=== PATIENT | female | born 1970 | race African-American/Black ===

== ENCOUNTER 2019-06-04 08:28 | Inpatient (IN) | payer BC, OTHER ==
[2019-05-27 10:00] LABS: HEMATOCRIT 40.4 % (37.0-47.0); HEMOGLOBIN 13.4 gm/dL (12.0-15.0); MCH 35.7 pg (26.0-34.0); MCHC 33.1 g/dL (28.0-37.0); MCV 107.7 fL (80.0-100.0); RBC 3.75 mil/uL (4.20-5.00); RDW 16.7 % (10.5-14.5); WBC 4.4 thou/uL (4.0-11.0)
[2019-05-27 10:00] LABS: URINE BILIRUBIN NEGATIVE (Negative); URINE BLOOD NEGATIVE (Negative); URINE CLARITY CLEAR; URINE COLOR YELLOW; URINE GLUCOSE-RANDOM* NEGATIVE (Negative); URINE KETONES TRACE (Negative); URINE LEUKOCYTES-REFLEX NEGATIVE (Negative); URINE NITRITE-REFLEX NEGATIVE (Negative); URINE PROTEIN (DIPSTICK) NEGATIVE (Negative); URINE SPECIFIC GRAVITY >= 1.030 (1.005-1.035); URINE UROBILINOGEN 0.2 E.U./dl (0.2-1.0)
[2019-05-27 10:09] LABS: ALBUMIN 3.7 g/dL (3.4-5.0); CALCIUM 9.9 mg/dL (8.5-10.1); CREATININE 0.8 mg/dL (0.6-1.0); POTASSIUM 3.7 mmol/L (3.5-5.1)
[2019-05-27 10:14] LABS: PROTIME 10.2 Seconds (9.3-11.4)
--- NOTE | 2019-05-27 12:43 | EKG ---
[facility] [place] [address] ELECTROCARDIOGRAM REPORT Name: BEA ANDRE Room #: PRE [facility] M..#: [id number] Admission: Attend Phys: Vernon Campoverde MD Discharge: Date of : 72 Report #: [id number] THIS REPORT FOR: cc: Jer Farr MD, Sequita MD Lammoglia,Zeb Venegas MD ~ THIS REPORT FOR: //name// [facility] Test Date: 2019-05-27 Test Time: 09:45:08 Pat Name: BEA ANDRE Department: Room: Gender: F Crown Presser: NATE CURTIS : 1970 Requested By: Vernon Campoverde Order Number: [id number] MD: Zeb Hahn Measurements Intervals [place] Rate: 97 P: 34 FL: 140 QRS: 1 QRSD: 67 T: 103 QT: 420 QTc: 534 Interpretive Statements Sinus rhythm Borderline LVH with secondary repol abnrm Nonspecific ST-T wave changes No previous ECG available for comparison Electronically Signed On 05-27-2019 12:15:55 [employer] by Zeb Hahn [email or web address] <ELECTRONICALLY SIGNED> By: Zeb Hahn MD 05/27/19 1215 0945 Zeb Hahn MD /EPI
[~2019-06-04] VITALS: Ht 185.4 cm; Wt 129.7 kg
[~2019-06-04 08:28] MED LIST: ALEVE220 M1 PO; AMITRIPTYLINE H25 M2 OR; BACLOFEN 10MG T10 MG PO; BUSPAR30 MG PO; CLOTRIMAZOLE-BE30 M1; COUMADIN 4 MG TA4 M1 PO; COUMADIN6 MG PO; CYMBALTA60 MG PO; ENDOCET 10-3251 EACH PO; FOLIC ACID1 MG PO; HYDROCODON-ACE1 EACH PO; LIDODERM1 EACH TOP; MELATONIN10 M3 PO; METOPROLOL SUC100 MG PO; MIRALAX17 GM PO; MOBIC7.5 M1 PO; MOBIC7.5 MG PO; NEURONTIN100 MG PO; NEURONTIN600 MG PO; NORCO 10-325 T1 EACH PO; NORVASC 2.5 MG2.5 M1 PO; ORTHO TRI-CYCL1 EAC1 PO; PERCOCET 10-321 EACH PO; ROBAXIN 750 MG750 MG PO; SAVELLA50 MG PO; SENNA-DOCUSATE1 EAC1 PO; TRAZODONE HCL50 MG PO; TUMS PO; TYLENOL325 MG PO; VALIUM5 MG PO; VICODIN 5-5001 EACH PO; VISTARIL 25 MG25 M1 PO; VITAMIN B-12100 MC1 PO; VITAMIN D 5050000 I1; ZANAFLEX4 M1 PO; ZOLOFT100 MG PO; [UNRECOGNIZED DRUG - OTHER]
[2019-06-04 09:48] VITALS: BP 155/88
--- NOTE | 2019-06-04 16:43 | O ---
[facility] [place] [address] [place] [address] OPERATIVE REPORT Name: BEA ANDRE Room #: 150-4 [facility]..#: [id number] Admission: 06/04/19 Attend Phys: Vernon Campoverde MD Discharge: Date of : 72 Report #: [id number] THIS REPORT FOR: cc: Jer Farr MD,Jer Campoverde,Vernon Venegas MD ~ CC: Vernon Farr DATE OF SERVICE: 06/04/2019 PREOPERATIVE DIAGNOSIS: End-stage degenerative arthritis, bilateral knees. POSTOPERATIVE DIAGNOSIS: End-stage degenerative arthritis, bilateral knees. PROCEDURE: Bilateral total knee replacement. SURGEON: Vernon Campoverde MD INDICATIONS: This heavy, but otherwise well appearing 49-year-old female has problems with severe progressive degenerative arthritis in multiple joints. She already underwent bilateral total hip replacements in the past and is functioning well there. Now, she has rather severe bilateral knee pain with mild valgus alignment on the right side and moderate to moderately severe valgus alignment on the left. She has limited range of motion with significant joint crepitus and significant intermittent swelling and pain. Given this, she has elected to go ahead with total knee replacement. We have discussed doing 1 knee at a time versus a bilateral procedure under the same anesthetic. I am concerned with her size and difficulty with postoperative rehabilitation and have suggested 1 knee at a time. She is rather adamant, however, that she would like to proceed with bilateral knee replacement, understanding the potential risks as well as benefits. We have decided that we would go ahead with left total knee replacement and pending our progress on that side might proceed with the right side under the same anesthetic if her procedure is going well without any problems or complications. The patient and her family understand this well and wish to proceed. DESCRIPTION OF PROCEDURE: The patient was taken to the operating room where she was placed under general anesthesia. Prophylactic intravenous antibiotics were administered. The left knee and leg were meticulously prepped and draped and a thigh tourniquet inflated to 350 mmHg. An anterior longitudinal skin incision was made and carried through the medial retinaculum. The patella was reflected laterally. Marked degenerative change in all 3 compartments and marked hypertrophic spurring throughout the knee was noted. The Schulz and NephBeisen knee system was utilized. Intramedullary guides were used on both the femur and the tibia. The femur was cut in 5 degrees of valgus and the tibia cut perpendicular [address] [address] OPERATIVE REPORT Name: BEA ANDRE Room #: 150-4 [facility]#: [id number] Admission: 06/04/19 Attend Phys: Vernon Campoverde MD Discharge: Date of : 72 Report #: [id number] to long axis of the bone. Sufficient bone was removed to correct the valgus malalignment and also to correct the mild 5-10 degree flexion contracture. The femur was best suited for a size 7 component. The tibia was best suited for a size 6 component. A trial reduction was performed and a size 10 mm polyethylene insert fit nicely resulting in satisfactory alignment and range of motion and stability. The patellar surface was resected and a 38 mm patellar button fit nicely with appropriate anchor holes. The trial components were removed. The surfaces were thoroughly irrigated and dried. The intramedullary canal was blocked with bone block on both the femoral and tibial sides. Methyl methacrylate cement was mixed and injected into the porous surface of the proximal tibia. The permanent components were brought up onto the field. A Schulz and Nephew size 6 Joann II tibial base plate was applied in appropriate position. It was impacted into place and seated nicely. All excess cement was removed from around its margin. A 10 mm Legion cruciate retaining polyethylene insert was then applied. It was snapped into place. It seated nicely and appeared to be secure. A size 7 left Legion femoral component was then applied using a small amount of cement at the distal femoral condyle where the bone was mildly soft. This component also seated nicely and appeared to be secure. It was impacted into place. A size 38 patellar button was cemented into place using appropriate anchor holes. Excess cement was removed from around its margin. The patella was held in place with a patellar clamp until the cement firmly hardened. Once the components were stable, range of motion, alignment, stability was once again assessed and felt to be satisfactory. The knee demonstrates full knee extension and flexion beyond 135 degrees with marked improvement in the preoperative valgus malalignment. The patella seemed to track nicely and appears to be stable. The joint seemed to be adequately aligned and appears to be generally stable. At this point, a single Hemovac was left in the wound exiting through a separate stab incision. The fascia was then closed with multiple #1 Vicryl sutures. The tourniquet was deflated after a total tourniquet time of 59 minutes. Good hemostasis was confirmed. The subcutaneous tissues were closed with 0 Monocryl. The skin was closed with skin juan. A sterile dressing was applied. At this point, the general progress was discussed, this initial surgery on the left side well despite her size and rather marked degenerative change. She seems to have no problems with her anesthetic and was doing quite nicely. Given this, I felt it was reasonable to go ahead with her request for right total knee replacement under the same anesthetic. At this point, the left knee was well protected in a sterile dressing and that extremity was covered. Attention was then directed to the right side. The right knee also demonstrates slight valgus malalignment and mild flexion contracture. The knee was carefully prepped and draped. A thigh tourniquet was [facility] [address] [place] [address] OPERATIVE REPORT Name: THAIBEA Lara Room #: 150-4 [facility]#: [id number] Admission: 06/04/19 Attend Phys: Vernon Campoverde MD Discharge: Date of : 72 Report #: [id number] applied and inflated to 350 mmHg. An anterior longitudinal skin incision was made and carried along the medial retinaculum. The patella was reflected laterally. Marked degenerative change in all 3 compartments was noted. Once again, the Schulz and Nephew knee system was utilized. Intramedullary guides were used on both the femur and the tibia. The femur was cut in 5 degrees of valgus and the tibia cut perpendicular to the long axis of the bone. There was less significant bony spurring and less significant degenerative change in the right knee when compared to the left. The right knee seemed best suited for a size 6 right Legion femoral component and a size 5 Joann II tibial component. A trial reduction was performed and a 9 mm tibial insert fit nicely. This resulted in full knee extension and good flexion beyond 135 degrees. The patellar surface was resected and a 35 mm patellar button seemed to fit nicely. The trial components were removed. The bony surfaces were thoroughly irrigated and dried. The intramedullary canal was blocked with a bone block on both the femoral and tibial sides. Methyl methacrylate cement was mixed and injected into the porous surface of the tibia. The permanent components were brought up on to the field. A Schulz and Nephew size 5 right Joann II tibial baseplate was inserted in appropriate alignment. It seated nicely and appeared to be secure. A 9 mm Legion cruciate retaining polyethylene liner was snapped into place. It also seated nicely and appeared to be secure. A 45 mm patellar button was cemented in position using appropriate anchor holes and secured with a patellar clamp until the cement had hardened. All excess cement was removed from around its margin. Once the components were solid and the cement was firm, alignment, range of motion and stability were once again assessed and felt to be satisfactory. The patellar tracks nicely and appears to be stable. The knee demonstrates full knee extension and flexion beyond 135 degrees. At this point, a single Hemovac was left in the wound exiting through a separate stab incision. The fascia was closed with multiple #1 Vicryl sutures. The subcutaneous tissues were closed with 0 Monocryl. The skin was closed with skin juan. A sterile dressing was applied. At this point, the patient was awakened and returned to the recovery room in good condition. <ELECTRONICALLY SIGNED> By: Vernon Campoverde MD 06/04/19 1643 1402 1452 Vernon Campoverde MD /nt
[2019-06-04] MEDS ORDERED: XANAX 0.5 MG0.5 M1 PO (18:18)
[2019-06-04 20:10] VITALS: BP 120/80
--- NOTE | 2019-06-04 20:11 | NUR ---
PT CARE ASSUMED POST OP AT 1700. A&Ox4. PT HAD A BILATER KNEE WITH MINIMAL PAIN. HEMOVAC IN PLACE IN BOTH KNEES. SEE OUTPUT FOR DRAIN AMOUNT. REILLY DRESSING INTACT. ICE PACKS/ FABIÁN HOSES/ SCD'S IN PLACE. IV PATENT, WITH NO REDNESS OR EDEMA. FEMORAL BLOCKS ARE IN PLACE. PT HAS BEEN WEANED OFF OF 02 AND IS STABLE AT 100%. LUNGS ARE CLEAR. NO EDEMA ON EITHER LEGS. DIASTOLIC PRESSURE IS ELEVATED WITH RANGES FROM 89-96 AND HEART RATE ELEVATED AT 110. MD AWARE. PT HAS ANXIETY AND IS AWARE THAT RECOVERY WILL TAKE A WHILE. EXSTENSIVE TIME SPENT WITH PATIENT IN ROOM TRYING TO REORIENT AND ANC CALM HER DOWN. PT NEEDED TO USE THE BATHROOM, GAIT BELT APPLIED. PT WAS ABLE TO EASILY MANUEVER HERSELF TO THE EDGE OF THE BED WITH MY ASSISTANCE. LEGS WERE BOTH DANGLED. PT LEANED FORWARS AND ATTEMPTED TO STAND WITH THE WALKER AND HER LEGS "GAVE OUT". PT DID NOT FALL. WITH ASSISTANCE OF OTHER STAFF WE WERE ABLE TO MOVE HER BACK TO HER BED. PT WAS VERY WORRIED THAT SHE MADE A MISTAKE OF HAVING BOTH HER KNEES DONE AT THE SAME TIME BEING WORRIED THAT THEY WOULD NOT BE ABLE TO HOLD HER WEIGHT. I WAS INFORMED FROM PT SISTER THAT PT HAS BILATERAL NUMBNESS PREOP WHICH I WAS NOT AWARE OF OR GIVEN IN REPORT. PT RECEIVED PAIN MEDICATION AND AN AMBIEN TO CALM HER NERVES AND GET SOME REST. LIQUID DIET TILERATED WELL AND ADVANCED TO A REGULAR DIET. IV FLUIDS INFUSING. FALL PROTOCOLL IN PLACE. CALL LIGHT IN REACH. PT IS VERY ANXIOUS ABOUT PLAN OF CARE. PLAN OF CARE EXPLAINED TO PT AND SISTER IN THE ROOM. PT AWAITING PT THERAPY IN THE MORNING. WILL CONTINUE TO MONITOR. END OF SHIFT REPORT GIVEN TO NATE MALIN.
[2019-06-05 05:28] LABS: FOLIC ACID 21.2 ng/mL (8.6-58.9)
[2019-06-05 07:49] LABS: HEMOGLOBIN 10.2 gm/dL (12.0-15.0); MCH 35.8 pg (26.0-34.0); MCHC 34.1 g/dL (28.0-37.0); MCV 104.9 fL (80.0-100.0); RBC 2.86 mil/uL (4.20-5.00); RDW 16.2 % (10.5-14.5); WBC 6.3 thou/uL (4.0-11.0)
[2019-06-05 08:15] VITALS: BP 138/79
[2019-06-05 08:30] VITALS: BP 149/89
--- NOTE | 2019-06-05 08:56 | NUR ---
ASSUMED PT CARE AT 1900. UPON SHIFT CHANGE, PT VERY ANXIOUS AND TEARFUL. CONCERNED ABOUT PLAN OF CARE, SPECIFICALLY HOW SHE WAS GOING TO USE THE BATHROOM. REFUSED THE BEDPAN. EXTERNAL CATHETER APPLIED. HAD TO DO A FULL BED CHANGE ONCE WHEN CATHETER WASN'T APPLIED CORRECTLY, TEDS AND LIZA BANDAGES GOT WET, WERE CHANGED. DERSSING DRY AND INTACT. HEMOVAC OUTPUT BEGINNING TO SLOW DOWN. PAIN BEING MANAGED WITH PAIN MEDICATION. ANXIETY AND SLEEP AGENTS GIVEN, ALTHOUGH PT BARELY SLEPT TONIGHT. ANTIBIOTICS AND FLUIDS HUNG PER ORDER.
--- NOTE | 2019-06-05 16:55 | NUR ---
PT'S DRAIN TO [facility] THIS AFTERNOON. PT HAS SCD'S PICCO DRESSING AND FABIÁN HOSE ORDERED. PT GIVEN PRN PAIN MED SOON POSSIBLE TO MANAGE PAIN.HAS OXY, HYDRO AND MORPHINE IV PUSH. ALSO SCED MORPHINE BID. PT WORKING WITH THERAPY. HAS BROTHERS IN ROOM.
--- NOTE | 2019-06-05 16:56 | NUR ---
FAXED REFERRAL TO [facility] SPOKE WITH CAROLYN IN INTAKE SHE CAN ACCEPT. IF PT DISCHARGES OVER WEEKEND FAX DC ORDERS/SUMMARY TO [phone] AND CALL [phone] TO LET THEM KNOW PT DC'D.
[2019-06-05 17:25] VITALS: BP 149/89
--- NOTE | 2019-06-05 17:26 | NUR ---
Case opened to follow for hh referral at ne. The pt is s/p bilat knee replacements. She lives alone and has two steps to enter her house. She has a FWW and shower chair in place at home. She is agreeable to hh f/u and denies preference. Mi traffic and transport planner faxed referral to [facility] and they can accept her insurance plan. They will need to be notified at ne [phone] and orders faxed to [phone].
[2019-06-05 19:40] VITALS: BP 138/81
--- NOTE | 2019-06-06 03:22 | NUR ---
ASSSUMED CARE OF PT @1900 PT ASSESSED AT START OF SHIFT WITH C/O OF PAIN. MEDS GIVEN FOR MANAGEMENT SEE EMAR. EXTERNAL FEMALE CATH IN PLACE AND DRAINING. REILLY DRESSING ON BOTH KNEES AND ICE PACK PLACE FOR PAIN MANAGEMENT. IV INTACT IN RT WRIST AND SALINE LOCK. FALL PREC IN PLACE AND CALL LIGHT IN REACH WILL CONT TO MONITOR.
[2019-06-06 04:10] VITALS: BP 146/85
[2019-06-06 06:14] LABS: HEMATOCRIT 28.1 % (37.0-47.0); HEMOGLOBIN 9.7 gm/dL (12.0-15.0); MCH 35.8 pg (26.0-34.0); MCHC 34.4 g/dL (28.0-37.0); MCV 104.2 fL (80.0-100.0); RBC 2.7 mil/uL (4.20-5.00); RDW 15.9 % (10.5-14.5); WBC 6.8 thou/uL (4.0-11.0)
--- NOTE | 2019-06-06 07:29 | NUR ---
PT RESTING IN BED. ICE PACKS TO JOHAN KNEE'S. WILL CONTINUE TO MONITOR PRN PAIN MEDS. PT ALERT XS 4.
[2019-06-06 08:24] VITALS: BP 137/71
[2019-06-06 19:35] VITALS: BP 132/78
[2019-06-07 04:50] VITALS: BP 128/66
--- NOTE | 2019-06-07 05:47 | NUR ---
PT LYING IN BED. EXTERNAL CATHETER IN PLACE. PERCOCET AND LORTAB PROVIDING PAIN RELIEF. RESTING COMFORTABLY. NO NEEDS VOICED. CALL LIGHT WITHIN REACH. FREQUENT OBSERVATION.
[2019-06-07 06:08] LABS: HEMATOCRIT 29.1 % (37.0-47.0); HEMOGLOBIN 9.7 gm/dL (12.0-15.0); MCHC 33.4 g/dL (28.0-37.0); MCV 104.7 fL (80.0-100.0); RBC 2.78 mil/uL (4.20-5.00); RDW 16.1 % (10.5-14.5)
--- NOTE | 2019-06-07 09:32 | NUR ---
PT RESTING IN BED ATE BREAKFAST. TOOK AM MEDS INCLUDING SCED PAIN MED AND PRN PAIN MED. WASHED UP THIS AM. PT TO WORK WITH THERAPY TODAY.
[2019-06-07 16:43] VITALS: BP 131/67
[2019-06-07 20:03] VITALS: BP 132/61
[2019-06-08 06:09] VITALS: BP 118/74
--- NOTE | 2019-06-08 07:49 | NUR ---
PT LYING IN BED. EXTERNAL FEMALE CATHETER IN PLACE. PERCOCET AND LORTAB PROVIDING PAIN RELIEF. RESTING COMFORTABLY. NO NEEDS VOICED. CALL LIGHT WITHIN REACH. FREQUENT OBSERVATION.
--- NOTE | 2019-06-08 15:18 | NUR ---
PT RESIDES ALONE IN A HOUSE WITH STEPS. CARE TEAM ARE RECOMMENDING SHORT TERM POST ACUTE CARE STAY FOR PT. CM PROVIDED PT A LIST OF FACILITIES TO REVIEW. CM FOLLOWED UP WITH PT EARLY THIS AFTERNOON AND SHE INDICATED SHE WOULD HAVE SOME FACILITIES SELECTED TOMORROW AM. CM INDICATED THAT WE WOULD NEED AUTH AND THE SOONER WE GET OPTIONS THE BETTER PT INDICATED UNSERSTANDING.
--- NOTE | 2019-06-08 19:53 | NUR ---
Assumed care of pt at 0700. Pt a&ox4. Dressing on both knees c/d/i. Pt requests metamucil. Provider notified. New order noted. FABIÁN hose and SCDs in place. Pt up to the bedside commode 2 person assist, with gaitbelt and walker. Pain controlled with prn pain meds. Call light within reach. Fall precautiosn in place. Report given to sury SULLIVAN.
[2019-06-08 19:59] VITALS: BP 136/79
--- NOTE | 2019-06-08 20:00 | NUR ---
ASSESSMENT COMPLETED. PT CALM AND PLEASANT. QUIETLY WATCHING TV.FRESH ICEPAKS PROVIDED. SCDS AND REILLY PLUS TEDS IN PLACE. KNEES WEIGHT GUESSER TO THE TOUCH. PT RATES PAIN AT A 7/10, PAIN MEDS GIVEN. PT DENIES ANY N/V.PT REQUESTED SOME MEDS ALITTLE EARLY. PLAN FOR PAIN MGT AND SOME GOOD REST TONIGHT.
[2019-06-09 03:43] VITALS: BP 145/69
[2019-06-09 07:00] VITALS: BP 133/77
--- NOTE | 2019-06-09 12:04 | NUR ---
Assumed care of pt at 0700. Pt a&ox4. Flat effect. Dressing on bilateral knees c/d/i. Pt worked with physical therapy. Recommended skilled vs home discharge. Pain controlled with prn pain meds. FABIÁN hose and SCDs in place. Call light within reach. Fall precautions in place. Will continue to monitor.
--- NOTE | 2019-06-09 14:24 | NUR ---
FAXED REFERRAL TO [facility] SPOKE WITH LIZBETH IN ADM SHE RECEIVED REFERRAL AND WILL REVIEW IF SHE CAN ACCEPT SHE WILL SUBMIT FOR AUTH. FAXED REFERRAL TO [facility] SPOKE WITH DANIEL IN ADM SHE RECEIVED REFERRAL AND WILL NOT HAVE BED AVAILABLE TO END OF WEEK. DP TO FOLLOW.
--- NOTE | 2019-06-09 14:57 | NUR ---
I have reviewed and concur with student documentation.
--- NOTE | 2019-06-09 14:57 | NUR ---
PT WORKED WITH PT THIS AM AND INDICATED SHE WOULD STILL BENEFIT FROM POST ACUTE CARE STAY. CM FOLLOWED UP WITH PT AND SHE ASKED THAT REFERRAL BE SENT TO [facility]. [facility] CAN ACCEPT PT AND HAVE SUBMITTED FOR AUTH. CM TO FOLLOW INDICATED WITH DC PLANNING.
[2019-06-09 21:25] VITALS: BP 125/71
--- NOTE | 2019-06-10 05:03 | NUR ---
ASSESSED AT START OF SHIFT PT A&OX4. REILLY DRESSING INTACT IN BILATERAL KNEE. ICE PACK PLACED. PT UP WITH MAX ASSISTX2 TO BSC WITH GB AND WALKER. PAIN MEDS GIVEN FOR MANAGEMENT THIS SHIFT. IV INTACT AND SALINE LOCK. SCD'S IN PLACE AND FAMILY AT BEDSIDE WILL CONT WITH POC TILL EOS.
[2019-06-10 05:51] VITALS: BP 151/76
[2019-06-10 07:42] VITALS: BP 128/84
--- NOTE | 2019-06-10 10:57 | NUR ---
PT RESTING IN BED ALERT XS 4. PT GIVEN PRN PAIN MED. HAS DRESSING INTACT TO JOHAN KNEE'S. PT PLEASANT ANS COOPERATIVE WITH CARE. PT WORKING WITH THERAPY.
[2019-06-10 15:58] VITALS: BP 133/72
--- NOTE | 2019-06-10 16:40 | NUR ---
FAXED TODAY'S PT NOTES TO [facility] RECEIVED CONFIRMATION AND LEFT MSG WITH LIZBETH IN ADM TO SUBMIT THEM FOR AUTH.
[2019-06-10 19:57] VITALS: BP 127/77
[2019-06-10 20:04] VITALS: BP 133/56
--- NOTE | 2019-06-11 05:31 | NUR ---
ASSUMED PT CARE AT 1900. PT SEEMS ANXIOUS TONIGHT. REQUESTING ANXIETY AND SLEEP AGENTS. PM MEDS AND PRNS GIVEN. UP TO COMMODE, VERY ANXIOUS ABOUT PUTTING WEIGHT ON HER LEGS. CALLS APPROPRIATELY FOR PAIN MEDS. SLEEPING ON AND OFF ALL NIGHT, NO OTHER SIGNIFICANT CHANGES.
--- NOTE | 2019-06-11 07:36 | D ---
[facility] [place] [address] DISCHARGE SUMMARY Name: BEA ANDRE Room #: 444-P ADM IN M.R.#: [id number] Admission: 06/04/19 Attend Phys: Vernon Campoverde MD Discharge: Date of : 72 Report #: [id number] THIS REPORT FOR: cc: Jer Farr MD,Jer Campoverde,Vernon Venegas MD ~ THIS REPORT FOR: //name// CC: Vernon Farr DATE OF SERVICE: 06/10/2019 FINAL DIAGNOSIS: End-stage degenerative arthritis, bilateral knees. OPERATIONS AND PROCEDURES: Bilateral total knee arthroplasty. HISTORY OF PRESENT ILLNESS: This 49-year-old female is heavy and deconditioned. She has a number of general medical problems. She also has rather severe progressive degenerative arthritis. She has previous bilateral total hip replacement with good result. She now has rather severe end-stage degenerative arthritis involving both knees. She has elected to go ahead with total knee replacement and prefers a bilateral procedure. HOSPITAL COURSE: The patient was admitted and taken to the operating room on 06/04/2019. She underwent bilateral total knee replacement. She tolerated the procedure well, but did have significant problems with ongoing discomfort and weakness with very slow progress regarding physical therapy. She had bilateral femoral nerve blocks which were helpful with pain control, but caused significant weakness such as she was really unable to ambulate with full weight on either leg for the first 48 hours. Gradually, the weakness started to improve and she was able to begin some organized therapy, but with maximum assistance. She is able to ambulate only a few steps using a walker for balance. She can transfer to a chair or to the bedside commode, but is not yet fully independent or safe. She has stairs in her own home and we have tried to advance her activity on steps without much success as she is simply too weak and out of balance to manage this in a safe and functional manner. Given this, we have looked at other alternatives and I believe will be moving to an extended care facility for probably 7-10 days of organized therapy and strengthening before she will be ready to go home. DISCHARGE MEDICATIONS: Include amlodipine 2.5 mg daily, baclofen 10 mg twice daily, BuSpar 30 mg daily, vitamin B12 at 100 mcg daily, Cymbalta 60 mg daily, folic acid 1 mg daily, gabapentin 100 mg 2 tablets 3 times daily, methocarbamol 750 mg q.i.d. p.r.n. for muscle spasm, metoprolol 100 mg daily, Colace 1-2 tablets twice daily, Xanax 0.5 mg p.r.n. as a sleep aid, Xarelto [address] [address] DISCHARGE SUMMARY Name: BEA ANDRE Lara Room #: 444-P [facility] IN M.R.#: [id number] Admission: 06/04/19 Attend Phys: Vernon Campoverde MD Discharge: Date of : 72 Report #: [id number] Her pain medication includes oxycodone extended release 20 mg tablets twice daily and hydrocodone 10 mg q.6 hours p.r.n. for breakthrough pain. She will continue with an aggressive therapy program for range of motion and strengthening using a walker for balance and safety. She can advance to full weightbearing and more independent ambulation whenever strength and balance will allow. I think she will need to be in an extended care facility with maximum assist until she is safe on stairs and then may be able to be home with some family assistance and some visiting therapy at that point. I am planning to see her back in my office in 10 days for followup and suture removal. <ELECTRONICALLY SIGNED> By: Vernon Campoverde MD 06/11/19 0736 1333 1341 Vernon Campoverde MD /nt
[2019-06-11 08:00] VITALS: BP 126/75
--- NOTE | 2019-06-11 11:09 | NUR ---
Nutrition: Assessed due to LOS. Admit for bilateral knee replacement, now s/p surgery. Waiting on placement approval for SNF. On a regular diet with a good, stable appetite. Meal average= 84% from 06/06 - 06/10 (eating 75-100% of all). Visited at bedside this date to inquire about any nutrition questions, education needs, etc. Pt voices "I can stand to lose a few, so I don't worry about my appetite." Declined further education for lifestyle changes re: wt loss. Encouraged her to prioritize protein rich foods, saving breads/starchy items and dessert foods for last. No nutrition needs identified. Low risk.
--- NOTE | 2019-06-11 14:20 | NUR ---
SPOKE WITH LIZBETH IN ADM AT [facility] AND THEY JUST RECEIVED AUTH. FAXED DC ORDERS/SUMMARY TO FACILITY ORDERS RECEIVED AND TRANSPORT SET FOR 1600 TODAY. PT WILL NOTIFY FAMILY OF DC AND TIME OF TRANSPORT. UNIT NOTIFIED AND CHART COPY PER US. RN TO CALL REPORT TO [phone].
--- NOTE | 2019-06-11 20:00 | NUR ---
INSURANCE HAS AUTHORIZED PT TO GO TO [facility]. IV REMOVED FROM R FA. HAS GIVEN SCRIPTS TO PT YESTERDAY. W/C ALEXANDRA PICKED UP PT . 1699, REPORT CALLED TO NURSE NOLVIA.
== END 2019-06-11 17:33 | DRG 462 ==
LOC: OR 08:28 → TBA 08:30 → OR 08:34 → 4S 16:59 → OR 17:22 → 4S 17:22
PROVIDERS: Hospitalist; ADMIT Orthopaedic Surgery
PROC: 0SRC069 Replacement of Right Knee Joint with Oxidized Zirconium on Polyethylene Synthetic Substitute, Cemented, Open Approach (ICD-10-PCS; principal; 2019-06-04)
PROC: 0SRD069 Replacement of Left Knee Joint with Oxidized Zirconium on Polyethylene Synthetic Substitute, Cemented, Open Approach (ICD-10-PCS; principal; 2019-06-04)
DX: M17.0 Bilateral primary osteoarthritis of knee (principal); Z96.643 Presence of artificial hip joint, bilateral; M54.5 Low back pain; I10 Essential (primary) hypertension; F32.9 Major depressive disorder, single episode, unspecified; K76.0 Fatty (change of) liver, not elsewhere classified; K21.9 Gastro-esophageal reflux disease without esophagitis; I25.10 Atherosclerotic heart disease of native coronary artery without angina pectoris; D75.89 Other specified diseases of blood and blood-forming organs; M21.952 Unspecified acquired deformity of left thigh; G47.33 Obstructive sleep apnea (adult) (pediatric); E66.01 Morbid (severe) obesity due to excess calories; M21.951 Unspecified acquired deformity of right thigh; Z79.899 Other long term (current) drug therapy; Z79.01 Long term (current) use of anticoagulants; Z88.1 Allergy status to other antibiotic agents; Z88.2 Allergy status to sulfonamides; Z91.048 Other nonmedicinal substance allergy status; Z68.37 Body mass index [BMI] 37.0-37.9, adult
CPT/HCPCS: 10102; 50010; 50101; 50415; 50954; 51130; 51225; 51412; 53364; 56525; 57095; 57103; 57104; 57181; 62110; 62900; 64039; 70005